=== PATIENT | male | born 1975 | race Caucasian/White ===

== ENCOUNTER 2020-12-15 12:41 | Emergency (ER) | payer MEDICAID ==
[2020-12-15 12:56] VITALS: BP 149/88
--- NOTE | 2020-12-15 14:29 | ED Physician Documentation ---
PD HPI SKIN - Stated complaint Stated Complaint: THIGH WOUND - Chief complaint Chief Complaint: Wound - History obtained from History obtained from: Patient - History of Present Illness Timing - onset: How many days ago (4-5) Timing - duration: Days (The patient noted area of tenderness and swelling in the right inguinal and perirectal area increasing over several days which then started draining with an odorous purulence yesterday. Still very tender today.) Timing - details: Gradual onset, Still present Location: Other (right inguinal/anterior perirectal.) Quality / character: Painful, Swelling, Draining Associated symptoms: No: Fever, Myalgias Similar symptoms before: Has not had sx before Review of Systems Constitutional: denies: Fever, Chills, Myalgias Skin: reports: Lesions Neurologic: denies: Focal weakness, Numbness PD PAST MEDICAL HISTORY - Past Medical History Cardiovascular: None Respiratory: None Endocrine/Autoimmune: None - Present Medications Home Medications: Ambulatory Orders Medication Instructions Recorded Confirmed Fluconazole [Diflucan] 150 mg PO Q3D #3 tablet 12/15/20 Ibuprofen [Motrin] 600 mg PO TID PRN #21 tab 12/15/20 Sulfamethox/Trimeth 800/160 1 each PO TID #21 tablet 12/15/20 [Bactrim Ds 800/160] - Allergies Allergies/Adverse Reactions: Allergies Allergy/AdvReac Type Severity Reaction Status Date / Time No Known Drug Allergies Allergy Verified 12/15/20 12:48 PD ED PE NORMAL - Vitals Vital signs reviewed: Yes - General General: Alert and oriented X 3, No acute distress, Well developed/nourished - Abdomen Abdomen: Soft, Non tender, Other (significantly obese) - Derm Derm: Normal color, Warm and dry, Other (The right upper medial thigh to perirectal area in the inguinal crease shows skin redness with superficial breakdown generally and then a localized area of redness and swelling with purulent drainage.) - Neuro Neuro: Alert and oriented X 3, No motor deficit, Normal speech Results - Vitals Vitals: Vital Signs - 24 hr 12/15/20 12:48 Temperature 36.6 C Heart Rate 110 H Respiratory 18 Rate Blood Pressure 149/88 H O2 Saturation 96 Oxygen O2 Source Room air PD MEDICAL DECISION MAKING - ED course Complexity details: reviewed results (Bedside ultrasound by me showed no persistent fluid collection but just inflammation of the tissue. No further I&D appears needed at this time.), considered differential (The skin is red with some superficial breakdown in the inguinal crease and a localized area of swelling with induration and purulent drainage.), d/w patient Departure - Departure Disposition: 01 Home, Self Care Clinical Impression: Inguinal abscess Condition: Stable Record reviewed to determine appropriate education?: Yes Instructions: ED Staph Infec Abx Tx Only Follow-Up: Fabian Mancera MD [Primary Care Provider] - Prescriptions: Sulfamethox/Trimeth 800/160 [Bactrim Ds 800/160] 1 each PO TID #21 tablet Fluconazole [Diflucan] 150 mg PO Q3D #3 tablet Ibuprofen [Motrin] 600 mg PO TID PRN #21 tab PRN Reason: Pain Comments: Cleanse the area with soap and water and try to rinse it with your showerhead. It looks most likely that there was a yeast infection in the area with skin breakdown that then allowed an abscess to form. It does appear to be draining adequately at this point so we will treated with antibiotics and anti- inflammatories. We will also go with an antifungal tablet to get at the apparent skin yeast infection as well. I would anticipate improvement over the next several days. Add Tylenol if needed for pains. [email or web address] in [place].
[2020-12-15] MEDS ORDERED: ACETAMINOPHEN 325 MG TABLET PO STA (14:42)
[2020-12-15] MEDS ORDERED: SULFAMETH/TRIMETH DS 800/160 MG TABLET PO STA (14:42)
[2020-12-15] MEDS ORDERED: IBUPROFEN 800 MG TABLET PO STA (14:42)
--- NOTE | 2020-12-16 15:29 | ED Physician Documentation ---
ED Addendum - Addendum Addendum: 12/16/20 15:28The patient's wound culture is coming back showing beta-hemolytic strep group B. We can call the patient and have them change from the Bactrim to cephalexin.
== END 2020-12-15 15:20 | disposition home or self-care (01) ==
LOC: ED 12:41
DX: L02.214 Cutaneous abscess of groin (principal)
CPT/HCPCS: 87070; 87205; 99283; A9270